=== PATIENT | male | born 1970 | race Caucasian/White ===

== ENCOUNTER 2024-04-11 16:02 | Emergency (ER) | payer OTHER ==
[~2024-04-11] VITALS: Ht 172.7 cm; Wt 104.3 kg
[2024-04-11 16:13] VITALS: BP_SYST 113; PULSE 75; RESP 22; TEMP 98.3; O2SAT 98
[2024-04-11] MEDS: MORPHINE 2 MG/ML INJ. SYRINGE IVP ONE (16:35)
[2024-04-11 16:43] LABS: BASOPHILS % (AUTO) 0.6 % (0.0-2.0); EOSINOPHILS # (AUTO) 0.1 K/uL (0.0-0.4); HEMATOCRIT 42.2 % (36-54); HEMOGLOBIN 14.6 g/dL (14.0-18.0); LYMPHOCYTES % (AUTO) 18.5 % (20.5-51.5); MEAN CORPUSCULAR HEMOGLOBIN 31 pg (27-31); MEAN CORPUSCULAR HGB CONC 35 % (32-36); MEAN CORPUSCULAR VOLUME 89 fL (79.0-98.0); MONOCYTES # (AUTO) 0.2 K/uL (0.0-1.0); MONOCYTES % (AUTO) 2.7 % (1.7-9.3); NEUTROPHILS # (AUTO) 4.3 K/uL (1.8-7.7); NEUTROPHILS % (AUTO) 77.2 % (40.0-70.0); PLATELET COUNT (AUTO) 204 K/uL (130-430); RED BLOOD CELL COUNT(AUTO) 4.74 MIL/uL (4.2-6.2); RED CELL DISTRIBUTION WIDTH 12.4 % (9.0-15.0); WHITE BLOOD COUNT (AUTO) 5.6 K/uL (4.8-10.8)
[2024-04-11] MEDS ORDERED: FUROSEMIDE 40 MG/4 ML VIAL IVP ONE (17:15)
[2024-04-11 17:25] LABS: CALCIUM 8.6 mg/dL (8.4-11.0); CREATININE 0.83 mg/dL (0.55-1.30)
[2024-04-11 20:53] VITALS: BP_SYST 114; PULSE 78; RESP 18; TEMP 97.3; O2SAT 95
== END 2024-04-11 20:53 | disposition home or self-care (01) ==
LOC: SED 16:02
DX: S20.212A Contusion of left front wall of thorax, initial encounter (principal); R10.2 Pelvic and perineal pain; R10.12 Left upper quadrant pain; M25.552 Pain in left hip; W01.0XXA Fall on same level from slipping, tripping and stumbling without subsequent striking against object, initial encounter; Y93.89 Activity, other specified; Y92.89 Other specified places as the place of occurrence of the external cause; Y99.8 Other external cause status
CPT/HCPCS: 99285; 71260; 96374; 80048; 85025; 36415; 74177; J2270; Q9967

== ENCOUNTER 2024-04-20 12:45 | Emergency (ER) | payer OTHER ==
[~2024-04-20] VITALS: Ht 172.7 cm; Wt 103.4 kg
[2024-04-20 12:45] VITALS: BP_SYST 116; PULSE 70; RESP 18; TEMP 97.2; O2SAT 97
[2024-04-20] MEDS: KETOROLAC TROMETHAMINE 60 MG/2 ML VIAL IM ONE (13:12)
[2024-04-20] MEDS: HYDROcodone/ACETAMIN 10-325 MG TAB PO ONE (13:12)
[2024-04-20 13:42] LABS: BASOPHILS % (AUTO) 0.6 % (0.0-2.0); EOSINOPHILS # (AUTO) 0.2 K/uL (0.0-0.4); EOSINOPHILS % (AUTO) 3.5 % (0.0-4.0); HEMATOCRIT 42.9 % (36-54); HEMOGLOBIN 14.5 g/dL (14.0-18.0); LYMPHOCYTES # (AUTO) 2.1 K/uL (1.0-5.5); LYMPHOCYTES % (AUTO) 33.6 % (20.5-51.5); MEAN CORPUSCULAR HEMOGLOBIN 31 pg (27-31); MEAN CORPUSCULAR HGB CONC 34 % (32-36); MEAN CORPUSCULAR VOLUME 90 fL (79.0-98.0); MONOCYTES # (AUTO) 0.7 K/uL (0.0-1.0); MONOCYTES % (AUTO) 10.9 % (1.7-9.3); NEUTROPHILS # (AUTO) 3.2 K/uL (1.8-7.7); NEUTROPHILS % (AUTO) 51.4 % (40.0-70.0); PLATELET COUNT (AUTO) 211 K/uL (130-430); RED BLOOD CELL COUNT(AUTO) 4.75 MIL/uL (4.2-6.2); RED CELL DISTRIBUTION WIDTH 12.9 % (9.0-15.0); WHITE BLOOD COUNT (AUTO) 6.2 K/uL (4.8-10.8)
[2024-04-20 13:48] LABS: BILIRUBIN,URINE NEGATIVE (NEGATIVE); BLOOD, URINE NEGATIVE (NEGATIVE); CLARITY/URINE CLEAR (CLEAR); COLOR,URINE YELLOW (YELLOW); GLUCOSE,URINE NEGATIVE (NEGATIVE); KETONES,URINE NEGATIVE (NEGATIVE); LEUKOCYTE ESTERASE ,URINE NEGATIVE (NEGATIVE); NITRITE, URINE NEGATIVE (NEGATIVE); PROTEIN URINE NEGATIVE (NEGATIVE); UROBILINOGEN,URINE 0.2 (0.2-1.0)
[2024-04-20 13:57] LABS: PROTHROMBIN TIME 10.4 SECS (9.5-12.5)
[2024-04-20 14:09] LABS: ALBUMIN 3.6 g/dL (3.4-4.8); BILIRUBIN,DIRECT 0.1 mg/dL (0.0-0.3); CALCIUM 8.4 mg/dL (8.4-11.0); CREATININE 1.02 mg/dL (0.55-1.30); TOTAL BILIRUBIN 0.4 mg/dL (0.0-1.0); TOTAL PROTEIN, SERUM 6.3 g/dL (6.4-8.3)
[2024-04-20] MEDS ORDERED: HYDR-3917 PO (14:23)
[2024-04-20] MEDS ORDERED: IBUP-1971 PO (14:23)
[2024-04-20 14:34] VITALS: BP_SYST 116; PULSE 70; RESP 18; TEMP 97.2; O2SAT 97
== END 2024-04-20 14:33 | disposition home or self-care (01) ==
LOC: SED 12:45
DX: R07.89 Other chest pain (principal)
CPT/HCPCS: 99284; 71045; 80076; 80048; 81001; 82150; 83690; 85025; 85610; 85730; 36415; 96372; 81003; 82397; J1885

== ENCOUNTER 2024-05-05 12:27 | Emergency (ER) | payer OTHER ==
[~2024-05-05] VITALS: Ht 170.2 cm; Wt 95.3 kg
[~2024-05-05 12:27] MED LIST: HYDR-3917 PO; IBUP-1971 PO
[2024-05-05 13:03] VITALS: BP_SYST 117; PULSE 97; RESP 18; TEMP 98.6; O2SAT 96
[2024-05-05 13:39] LABS: INFLUENZA TYPE A Negative (NEGATIVE); INFLUENZA TYPE B NEGATIVE (NEGATIVE)
[2024-05-05] MEDS ORDERED: NIRM1TAB7 PO (14:22)
[2024-05-05 15:05] VITALS: BP_SYST 117; PULSE 97; RESP 18; TEMP 98.6; O2SAT 96
== END 2024-05-05 15:09 | disposition home or self-care (01) ==
LOC: SED 12:27
DX: U07.1 COVID-19 (principal); J40 Bronchitis, not specified as acute or chronic; Z79.899 Other long term (current) drug therapy
CPT/HCPCS: 36415; 71045; 99284